=== PATIENT | male | born 2000 | race Caucasian/White ===

== ENCOUNTER 2022-03-03 00:03 | Emergency (ER) | payer BC, SELFPAY ==
[2022-03-03 00:09] VITALS: BP 140/87; PULSE 80; RESP 16; TEMP 36.9; O2SAT 97; BMI 18.1
--- NOTE | 2022-03-03 00:17 | ED.ABDPAIN ---
HPI - Abdominal Pain General Time Seen by Provider: 00:20 Date Seen: 03/03/22 Chief Complaint: Abdominal Pain Stated Complaint: right side abdominal pain Time Seen by Provider: 03/03/22 00:17 Source: patient, family, RN notes reviewed and old records reviewed Mode of arrival: ambulatory Limitations: no limitations History of Present Illness HPI narrative: Hua is a very pleasant 22-year-old male previously healthy who comes to the emergency his mother for evaluation regarding pain. His mother states that he is not complainer has a very pain tolerance and thus with this as he has discomfort it is real. Given the gradual onset of discomfort right side of his belly button yesterday and has gradually migrated to the right. It has not descended into right lower quadrant. It is not associated with fever or chills. He states he is very hungry and has been able to eat today. He denies constipation or diarrhea or any blood in his stool. He did not have any problems with his discomfort as he drove here such as going over bumps. Yesterday states the pain was around 2 to 3/10 and today it is 6 or 7 out 10. 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 In fact he states yesterday was rather calm day. Patient denies any history of fever chills or recent COVID symptoms. Related Data Home Medications Medication Instructions Recorded Confirmed No Known Home Medications 03/03/22 03/03/22 Allergies Allergy/AdvReac Type Severity Reaction Status Date / Time amoxicillin Allergy Intermediate Hives Verified 03/03/22 00:08 Review of Systems Status of ROS Reports: 10 or more systems reviewed and unremarkable except as noted in History and below Const Denies: fever, chills, fatigue or night sweats Eyes Denies: change in vision ENMT Denies: throat pain or difficulty swallowing Cardio Denies: chest pain or shortness of breath with exertion Resp Denies: shortness of breath or cough GI Reports: abdominal pain; Denies: nausea, vomiting, diarrhea, constipation, difficulty swallowing or blood in stool Denies: painful urination Musculo Denies: back pain Neuro Denies: headache Endo Denies: fatigue PFSH PFSH Social History Smoking Status: Never smoker Do you use any of these nicotine containing products: None Second hand tobacco smoke exposure: No How often do you have a drink containing alcohol: never How often do you have six or more drinks on one occasion: Never AUDIT-C Alcohol total score: 0 Non-prescribed substance use: marijuana (any form) service: No Exam Const: Vital Signs, click to edit/add: Vital Signs - 24 hr 03/03/22 00:09 03/03/22 01:00 Temperature 98.4 F Pulse Rate [Pulse Oximeter] 80 67 Respiratory Rate 16 14 Blood Pressure [Ri ght Upper Arm] 140/87 H 128/79 Pulse Oximetry 97 98 Oxygen Delivery Me thod Room Air Room Air Documenting provider has reviewed patient's vital signs: yes Common normals: no apparent distress, average body habitus, oriented x3, no limitations and healthy appearing General appearance: cooperative and comfortable HENMT: Common normals: normocephalic and external ears normal Head and scalp: normocephalic Face and sinus: normal facial exam External ear: external ears normal Mouth: oral and palatal mucosa normal Throat: posterior oropharynx normal Eye: Common normals: PERRL General eye: normal appearance of both eyes Pupil: PERRL Neck & C-Spine: Common normals: full ROM Chest: Common normals: inspection of chest normal Resp: Common normals: normal respiratory effort and clear to auscultation bilaterally Effort & inspection: able to speak in complete sentences and symmetric chest movement Auscultation: clear to auscultation bilaterally Cardio: Common normals: regular rate and regular rhythm Rate: regular rate Rhythm: regular rhythm GI: Common normals: soft to palpation and no masses Inspection: no abdominal wall ecchymosis Auscultation: normoactive bowel sounds Palpation: soft and tender Details: RUQ; no guarding Other: mild increased pain with deep inspiration RUQ : Common normals: no CVA tenderness Bladder/kidney exam: no CVA tenderness Back & Pelvis: Common normals: no CVA tenderness Extremity: Common normals: normal to inspection Neuro: Common normals: oriented x3 Skin: Common normals: no rashes or lesions noted General skin exam: no rashes or lesions noted Course Course Hospital Course: Patient presents tonight with his mother. Great concerns regarding potential appendicitis. I did explain that Hua does not have normal exam findings nor symptoms of appendicitis such as a healthy appetite and no peritoneal signs. In addition as pain appears to be in the right upper quadrant/lateral abdomen and not in the right lower quadrant. Straight leg raise and internal external rotation at the hip do not cause discomfort. I explained that we would be getting laboratory values and that I would be avoiding CT in a person of his age if there were normal values. If he has persisting discomfort after pain medication (I will be using Toradol) we will then consider ultrasound of the right upper quadrant. Reevaluation(s) Reevaluation #1: Patient noted to be feeling somewhat improved with Toradol. Pain has decreased to a 4-5 with walking but at rest is much improved. Laboratory values are discussed with patient and his mother and they are all very reassuring. Given ongoing pain will order ultrasound. Time: 01:40 Reevaluation #2: Patient still unable to urinate. He does have a slightly elevated BUN. He continues to be nontoxic in appearance with normal pulse blood pressure and he is afebrile. We brought him to [facility] to see if we can induce a urine sample. Vital Signs Vital signs: Initial Vital Signs Temperature 98.4 F 03/03/22 00:09 Temperature Source Temporal Artery Scan 03/03/22 00:09 Pulse Rate 80 03/03/22 00:09 Respiratory Rate 16 03/03/22 00:09 Blood Pressure 140/87 H 03/03/22 00:09 Blood Pressure Mean 104 03/03/22 00:09 Blood Pressure Position Sitting 03/03/22 00:09 Pulse Oximetry 97 03/03/22 00:09 Oxygen Delivery Method 03/03/22 00:09 Vital Signs Temperature 98.4 F 03/03/22 00:09 Pulse Rate 80 03/03/22 00:09 Respiratory Rate 16 03/03/22 00:09 Blood Pressure 140/87 H 03/03/22 00:09 Pulse Oximetry 97 03/03/22 00:09 Oxygen Delivery Method 03/03/22 00:09 Temperature 98.4 F 03/03/22 00:09 Pulse Rate 67 03/03/22 01:00 Respiratory Rate 14 03/03/22 01:00 Blood Pressure 128/79 03/03/22 01:00 Pulse Oximetry 98 03/03/22 01:00 Oxygen Delivery Method 03/03/22 01:00 MDM - Abdominal Pain MDM Narrative Medical decision making narrative: 1. Abdominal pain-at this time no evidence of cholecystitis, cholelithiasis, acute abdomen. White count and CRP are reassuring as are LFTs. Abdominal ultrasound showed no evidence of stones. Or other acute findings. Hua was not able to give a urine sample but they are electing to go home. I would recommend using ibuprofen or Tylenol as needed for any ongoing discomfort. Certainly we have to consider an abdominal process early in its course but I think this is more likely to be some sort of muscular process given patient's current employment. Our plan going forward is to have Hua follow up with his primary MD if his symptoms are stable but persistent. If he has fever, worsening pain, migration of the pain to the right lower quadrant or onset of new symptoms he will return to the emergency room for evaluation. I do state that at this time I would not pursue a CT given patient's exam findings, history and reassuring laboratory values as I feel that the radiation is of greater risk than the benefit of the CT. That may change in the future if symptoms or labs also change. Mom agrees she feels comfortable with our plan. 2. Disposition-home. Return as needed. Medical Records Attestation: I reviewed the patient's medical records. Lab Data Attestation: I reviewed the patient's lab results. Labs: Lab Results 03/03/22 03/03/22 Range/Units 00:35 00:35 WBC 9.61 (4.50-11.00) K/uL RBC 4.83 (4.30-5.90) m/uL Hgb 14.2 (13.5-17.5) gm/dL Hct 41.3 (37.0-53.0) % MCV 86 (80-100) fL MCH 29 (26-34) pg MCHC 34 (32-36) gm/dL RDW Coeff of Jennifer 12.7 (11.5-15.5) % Plt Count 251 (140-440) K/uL Neut % (Auto) 68.1 (42.0-72.0) % Lymph % (Auto) 23.5 (20-44) % [place] % (Auto) 7.2 (0.0-11.0) % Eos % (Auto) 0.1 (0.0-7.0) % Baso % (Auto) 0.4 (0.0-3.0) % Neut # (Auto) 6.54 (1.7-7.0) K/uL Lymph # (Auto) 2.26 (0.90-2.90) K/uL [place] # (Auto) 0.70 (0.00-0.90) K/UL Eos # (Auto) 0.01 (0.00-0.50) K/uL Baso # (Auto) 0.04 (0.00-0.30) K/uL Abs Immat Gran (auto) 0.07 (0.00-0.30) K/uL Sodium 137 (135-149) mmol/L Potassium 4.1 (3.6-5.1) mmol/L Chloride 103 (96-114) mmol/L Carbon Dioxide 21 (20-32) mmol/L BUN 29 H (5-24) mg/dL Creatinine 0.8 (0.5-1.5) mg/dL Estimated Creat Clear 137.02 Estimated GFR 130 ml/min Glucose 102 (60-115) mg/dL Calcium 9.9 (8.4-10.6) mg/dL Total Bilirubin 0.3 (0.1-1.5) mg/dL AST 38 H (12-35) U/L ALT 27 (4-50) U/L Alkaline Phosphatase 94 (40-150) U/L C-Reactive Protein 0.8 (0.5-1.0) mg/dL Total Protein 8.1 (6.0-8.3) g/dL Albumin 4.9 (3.3-5.0) g/dL Amylase 70 (18-89) U/L Lipase 39 (23-300) U/L Imaging Data US - abdomen: Attestation: I have reviewed the pertinent imaging results. Radiologist's impression: No acute findings Discharge Plan Discharge Clinical Impression: Abdominal pain Patient Disposition: Home w/ Parent or Adult Condition: Improved Additional Instructions: Ibuprofen or Tylenol as needed for stomach discomfort. Follow-up with your primary MD for ongoing symptoms. Return to the emergency room for fever, worsening symptoms, vomiting or onset of new symptoms. Push fluids. Prescriptions: No Action No Known Home Medications Follow Up/Referrals: Provider,Not a Local [Primary Care Provider] - Stand Alone Forms: [employer] Info Instructions
[2022-03-03] MEDS: KETOROLAC 15 MG/ML inj IVP (00:46)
[2022-03-03 01:00] VITALS: BP 128/79; PULSE 67; RESP 14; O2SAT 98
[2022-03-03 01:02] LABS: Basophils Absolute Auto 0.04 K/uL (0.00-0.30); Basophils Percent Auto 0.4 % (0.0-3.0); Eosinophils Absolute Auto 0.01 K/uL (0.00-0.50); Eosinophils Percent Auto 0.1 % (0.0-7.0); Hematocrit 41.3 % (37.0-53.0); Hemoglobin* 14.2 gm/dL (13.5-17.5); Immature Granulocytes Abs Auto 0.07 K/uL (0.00-0.30); Lymphocytes Absolute Auto 2.26 K/uL (0.90-2.90); Lymphocytes Percent Auto 23.5 % (20-44); Mean Corpuscular HGB Conc 34 gm/dL (32-36); Mean Corpuscular Hemoglobin 29 pg (26-34); Mean Corpuscular Volume 86 fL (80-100); Monocytes Percent Auto 7.2 % (0.0-11.0); Neutrophils Absolute Auto 6.54 K/uL (1.7-7.0); Neutrophils Percent Auto 68.1 % (42.0-72.0); Platelet Count* 251 K/uL (140-440); RDW Coefficient of Variation % 12.7 % (11.5-15.5); Red Blood Count 4.83 m/uL (4.30-5.90); White Blood Count* 9.61 K/uL (4.50-11.00)
[2022-03-03 01:05] LABS: Slide Review Reflex No
[2022-03-03 01:06] LABS: Albumin* 4.9 g/dL (3.3-5.0); Chloride* 103 mmol/L (96-114)
[2022-03-03 01:07] LABS: Potassium* 4.1 mmol/L (3.6-5.1); Sodium* 137 mmol/L (135-149)
[2022-03-03 01:09] LABS: Amylase* 70 U/L (18-89); Creatinine* 0.8 mg/dL (0.5-1.5); Est. Creatinine Clearance* 137.02; Estimated Glomerular Filt Rate 130 ml/min
[2022-03-03 01:10] LABS: Alanine Aminotransferase* 27 U/L (4-50); Alkaline Phosphatase* 94 U/L (40-150); Aspartate Amino Transferase* 38 U/L (12-35); Bilirubin Total* 0.3 mg/dL (0.1-1.5); Blood Urea Nitrogen* 29 mg/dL (5-24); Calcium* 9.9 mg/dL (8.4-10.6); Carbon Dioxide* 21 mmol/L (20-32); Glucose* 102 mg/dL (60-115); Lipase* 39 U/L (23-300); Total Protein* 8.1 g/dL (6.0-8.3)
[2022-03-03 01:12] LABS: C Reactive Protein* 0.8 mg/dL (0.5-1.0)
--- NOTE | 2022-03-03 01:45 | CRLHL7_ITS ---
For Patients: As a result of the Century Cures Act, medical imaging exams and procedure reports are released immediately into your electronic medical record. You may view this report before your referring provider. If you have questions, please contact your health care provider. INDICATION: Right upper quadrant pain. COMPARISON: None available. TECHNIQUE: Ultrasound examination of the right upper quadrant was performed. FINDINGS: There is normal appearance of the gallbladder, with no sign of cholelithiasis or acute cholecystitis. There is no sign of gallbladder wall thickening or pericholecystic fluid. A sonographic Lopez sign is not present, with no pain over the gallbladder during ultrasound examination. The common bile duct is normal in caliber at 4 mm. The pancreatic head and body were examined, and these are normal in appearance. The abdominal aorta and visualized portions of the inferior vena cava are normal in appearance. The liver shows no sign of mass or contour abnormality, and there is no sign of ascites. The right kidney is unremarkable. IMPRESSION: Normal right upper quadrant ultrasound. Dictated by Tenzin Chowdary MD @ 03/03/2022 2:56:39 AM (Electronically Signed)
[2022-03-03 02:30] VITALS: BP 121/70; PULSE 69; RESP 16; O2SAT 98
== END 2022-03-03 03:31 | disposition home or self-care (01) ==
PROVIDERS: Emergency Provider Family Medicine
DX: R10.9 Unspecified abdominal pain (principal)
CPT/HCPCS: 36415; 76705; 80053; 81003; 82150; 83690; 85025; 86140; 96374; 99283; 99284; J1885

== ENCOUNTER 2022-03-04 19:48 | Emergency (ER) | payer BC, SELFPAY ==
[2022-03-04 19:57] VITALS: BP 145/79; PULSE 78; RESP 16; TEMP 36.6; O2SAT 99; BMI 18.2
--- NOTE | 2022-03-04 20:13 | CRLHL7_ITS ---
For Patients: As a result of the Century Cures Act, medical imaging exams and procedure reports are released immediately into your electronic medical record. You may view this report before your referring provider. If you have questions, please contact your health care provider. INDICATION: Right-sided abdominal pain since Monday. TECHNIQUE: CT abdomen and pelvis following the intravenous administration of 71 cc of Isovue 370. COMPARISON: Ultrasound 03/03/2022. FINDINGS: Lower chest: Unremarkable. Liver: Focal fatty sparing along the falciform ligament. No focal liver lesion. Gallbladder and bile ducts: Gallbladder is decompressed. No biliary ductal dilation. Pancreas: Unremarkable. No mass or inflammation. Spleen: Normal in size. No masses. Adrenal glands: Normal in size. No nodules. Kidneys: Normal in size. No suspicious masses, stones, or hydronephrosis. GI tract: Stomach is distended with ingested material. Appendix is not definitively identified though no secondary findings of appendicitis. No small bowel dilation. No colonic wall thickening or pericolonic fat stranding. No free fluid or free air. No lymphadenopathy. No pneumatosis or portal venous gas bread Vasculature: Unremarkable. Lymph nodes: No lymphadenopathy. Abdominal wall/Omentum/Peritoneum: Unremarkable. No sign of mass or infiltration. No free air or significant free fluid. Pelvis: Unremarkable. No pelvic masses. Bones: Unremarkable for age. IMPRESSION: No evidence of acute intra-abdominal or pelvic abnormality. Appendix is not definitely visualized though no secondary findings of appendicitis. No right-sided stones or hydronephrosis. Please note that all CT scans at this facility use dose modulation, iterative reconstruction, and/or weight-based dosing when appropriate to reduce radiation dose to as low as reasonably achievable. Dictated by Nacho Fortune MD @ 03/04/2022 9:40:29 PM (Electronically Signed)
--- NOTE | 2022-03-04 20:24 | ED_ITS ---
HPI - General Adult General Chief complaint: Abdominal Pain Stated complaint: Abdominal Pain Time Seen by Provider: 03/04/22 20:15 History of Present Illness HPI narrative: Patient is a 22-year-old gentleman who was seen several days ago here in the emergency room for right upper abdominal pain. Normal ultrasound. The pain seems to be work pending. He has had no he states is worse when he walks or he has no history of any abdominal without Related Data Home Medications Medication Instructions Recorded Confirmed No Known Home Medications 03/03/22 03/03/22 Allergies Allergy/AdvReac Type Severity Reaction Status Date / Time amoxicillin Allergy Unknown Hives Verified 03/04/22 20:44 Review of Systems Status of ROS: Reports: 10 or more systems reviewed and unremarkable except as noted in History and below [facility] Medical History (Updated 03/04/22 @ 21:47 by Amado Chanel MD) No significant past medical history Surgical History (Updated 03/04/22 @ 20:02 by Irving Quintana RN) No significant past surgical history Social History Smoking Status: Never smoker Do you use any of these nicotine containing products: None Second hand tobacco smoke exposure: No How often do you have a drink containing alcohol: never How often do you have six or more drinks on one occasion: Never AUDIT-C Alcohol total score: 0 Non-prescribed substance use: marijuana (any form) service: No Exam Narrative: Exam Narrative: EXAM GENERAL: Patient appears comfortable and well. EYES: No scleral icterus. LYMPH: No supraclavicular or cervical lymphadenopathy. SKIN: Visible skin seen during exam normal or with benign process only. EXT: No dependent lower extremity pedal edema. HEART: Regular rate and rhythm with no murmurs, rubs, or gallops. LUNGS: Clear to auscultation bilaterally with no crackles or wheezes. ABD: Soft, non tender, non distended. PSYCH: Good eye contact, speech is not pressured. Const: Vital Signs, click to edit/add: Vital Signs - 24 hr 03/04/22 19:57 03/04/22 21:43 Temperature 97.8 F 97.8 F Pulse Rate [Right Pulse Oximeter] 78 74 Respiratory Rate 16 16 Blood Pressure [Ri ght Upper Arm] 145/79 H 121/74 Pulse Oximetry 99 99 Oxygen Delivery Me thod Room Air Room Air Course Course Hospital Course: CT of the abdomen pelvis CBC. Reevaluation(s) Reevaluation #1: CT abdomen pelvis CBC amylase UA is metabolic panel all normal. Patient Time: 21:45 Vital Signs Vital signs: Initial Vital Signs Temperature 97.8 F 03/04/22 19:57 Temperature Source Temporal Artery Scan 03/04/22 19:57 Pulse Rate 78 03/04/22 19:57 Respiratory Rate 16 03/04/22 19:57 Blood Pressure 145/79 H 03/04/22 19:57 Blood Pressure Mean 101 03/04/22 19:57 Blood Pressure Position Sitting 03/04/22 19:57 Pulse Oximetry 99 03/04/22 19:57 Oxygen Delivery Method 03/04/22 19:57 Vital Signs Temperature 97.8 F 03/04/22 19:57 Pulse Rate 78 03/04/22 19:57 Respiratory Rate 16 03/04/22 19:57 Blood Pressure 145/79 H 03/04/22 19:57 Pulse Oximetry 99 03/04/22 19:57 Oxygen Delivery Method 03/04/22 19:57 Temperature 97.8 F 03/04/22 21:43 Pulse Rate 74 03/04/22 21:43 Respiratory Rate 16 03/04/22 21:43 Blood Pressure 121/74 03/04/22 21:43 Pulse Oximetry 99 03/04/22 21:43 Oxygen Delivery Method 03/04/22 21:43 Medical Decision Making Lab Data Labs: Lab Results 03/04/22 03/04/22 03/04/22 Range/Units 20:20 20:20 20:20 WBC 5.04 (4.50-11.00) K/uL RBC 4.45 (4.30-5.90) m/uL Hgb 13.3 L (13.5-17.5) gm/dL Hct 38.5 (37.0-53.0) % MCV 87 (80-100) fL MCH 30 (26-34) pg MCHC 35 (32-36) gm/dL RDW Coeff of Jennifer 13.0 (11.5-15.5) % Plt Count 241 (140-440) K/uL Neut % (Auto) 51.6 (42.0-72.0) % Lymph % (Auto) 37.1 (20-44) % [place] % (Auto) 8.1 (0.0-11.0) % Eos % (Auto) 2.6 (0.0-7.0) % Baso % (Auto) 0.6 (0.0-3.0) % Neut # (Auto) 2.60 (1.7-7.0) K/uL Lymph # (Auto) 1.87 (0.90-2.90) K/uL [place] # (Auto) 0.40 (0.00-0.90) K/UL Eos # (Auto) 0.13 (0.00-0.50) K/uL Baso # (Auto) 0.03 (0.00-0.30) K/uL Abs Immat Gran (auto) 0.00 (0.00-0.30) K/uL Sodium 139 (135-149) mmol/L Potassium 3.9 (3.6-5.1) mmol/L Chloride 108 (96-114) mmol/L Carbon Dioxide 24 (20-32) mmol/L BUN 17 (5-24) mg/dL Creatinine 0.8 (0.5-1.5) mg/dL Estimated Creat Clear 137.66 Estimated GFR 130 ml/min Glucose 110 (60-115) mg/dL Calcium 8.8 (8.4-10.6) mg/dL Total Bilirubin 0.2 (0.1-1.5) mg/dL AST 29 (12-35) U/L ALT 24 (4-50) U/L Alkaline Phosphatase 81 (40-150) U/L Total Protein 7.0 (6.0-8.3) g/dL Albumin 4.2 (3.3-5.0) g/dL Amylase 70 (18-89) U/L Urine Color Yellow (Yellow) Urine Appearance Clear (Clear) Urine pH 6.0 (5.0-8.5) Ur Specific [place] >= 1.030 (1.000-1.030) Urine Protein Negative (Negative) Urine Glucose (UA) Negative (Negative) Urine Ketones Negative (Negative) Urine Blood Negative (Negative) Urine Nitrite Negative (Negative) Urine Bilirubin Negative (Negative) Urine Urobilinogen 0.2 (0.2-1.0) Ur Leukocyte Esterase Negative (Negative) Discharge Plan Discharge Clinical Impression: Abdominal muscle strain Patient Disposition: Home, Self-Care Condition: Stable Instructions: Muscle Strain (ED) Additional Instructions: Ibuprofen 600 mg three times per day as needed Ice Follow up with your doctor as needed Activity Level: No Restrictions and Activity as Tolerated Discharge Diet: Regular Prescriptions: No Action No Known Home Medications Follow Up/Referrals: Provider,Not a Local [Primary Care Provider] - Stand Alone Forms: [employer] Info Instructions
[2022-03-04 20:33] LABS: Basophils Absolute Auto 0.03 K/uL (0.00-0.30); Basophils Percent Auto 0.6 % (0.0-3.0); Eosinophils Absolute Auto 0.13 K/uL (0.00-0.50); Eosinophils Percent Auto 2.6 % (0.0-7.0); Hematocrit 38.5 % (37.0-53.0); Hemoglobin* 13.3 gm/dL (13.5-17.5); Lymphocytes Absolute Auto 1.87 K/uL (0.90-2.90); Lymphocytes Percent Auto 37.1 % (20-44); Mean Corpuscular HGB Conc 35 gm/dL (32-36); Mean Corpuscular Hemoglobin 30 pg (26-34); Mean Corpuscular Volume 87 fL (80-100); Monocytes Percent Auto 8.1 % (0.0-11.0); Neutrophils Percent Auto 51.6 % (42.0-72.0); Platelet Count* 241 K/uL (140-440); Red Blood Count 4.45 m/uL (4.30-5.90); White Blood Count* 5.04 K/uL (4.50-11.00)
[2022-03-04 20:59] LABS: Appearance Urine Clear (Clear); Bilirubin Urine Negative (Negative); Blood Urine Negative (Negative); Color Urine Yellow (Yellow); Glucose Urine Negative (Negative); Ketones Urine Negative (Negative); Leukocyte Esterase Urine Negative (Negative); Nitrite Urine Negative (Negative); Protein Urine Negative (Negative); Specific Gravity Urine >= 1.030 (1.000-1.030); Urobilinogen Urine 0.2 (0.2-1.0)
[2022-03-04 21:04] LABS: Albumin* 4.2 g/dL (3.3-5.0); Amylase* 70 U/L (18-89); Chloride* 108 mmol/L (96-114); Creatinine* 0.8 mg/dL (0.5-1.5); Est. Creatinine Clearance* 137.66; Estimated Glomerular Filt Rate 130 ml/min; Potassium* 3.9 mmol/L (3.6-5.1); Sodium* 139 mmol/L (135-149)
[2022-03-04 21:05] LABS: Alanine Aminotransferase* 24 U/L (4-50); Alkaline Phosphatase* 81 U/L (40-150); Aspartate Amino Transferase* 29 U/L (12-35); Bilirubin Total* 0.2 mg/dL (0.1-1.5); Blood Urea Nitrogen* 17 mg/dL (5-24); Calcium* 8.8 mg/dL (8.4-10.6); Carbon Dioxide* 24 mmol/L (20-32); Glucose* 110 mg/dL (60-115)
[2022-03-04 21:18] LABS: Slide Review Reflex No
[2022-03-04 21:43] VITALS: BP 121/74; PULSE 74; RESP 16; TEMP 36.6; O2SAT 99
[2022-03-04 21:54] VITALS: BP 121/74; PULSE 74; RESP 16; TEMP 36.6
== END 2022-03-04 21:54 | disposition home or self-care (01) ==
PROVIDERS: Emergency Provider Internal Medicine
DX: S39.011A Strain of muscle, fascia and tendon of abdomen, initial encounter (principal)
CPT/HCPCS: 36415; 74177; 80053; 81003; 82150; 85025; 99283; 99284; Q9967

== ENCOUNTER 2025-01-01 17:17 | Emergency (ER) | payer OTHER, SELFPAY ==
--- OUTSIDE RECORDS SUMMARY | 2025-01-01 17:18 | XMS_ITS | Clinical Summary ---
Author Organization [facility] Address [address] [place] [id number] Care Team Providers Care Contact Center Rep Name Role Phone Pcp, No Primary Care Provider Unavailabl e Allergies Active Allergy Reactions Criticality Noted Date Comments Amoxicillin Hives 11/12/2007 Medications sennosides-doc usate (8.6-50 mg) tabletIndicati ons:Left testicular pain Take 1 Tablet by mouth 2 times daily if needed for Constipation (to avoid constipation post-operatively and if taking narcotic pain medications). 30 Tablet 12/17/2024 9:08 AM T 12/17/19 25 Active acetaminophen 325 mg tabletIndicati ons:Left testicular pain Take 2 Tablets (650 mg) by mouth every 6 hours if needed for Pain. Max acetaminophen dose: 4000mg in 24 hrs. 100 Tablet 12/17/2024 9:08 AM T 12/17/19 25 Active ibuprofen 600 mg tabletIndicati ons:Left testicular pain Take 1 Tablet (600 mg) by mouth every 8 hours if needed for Pain. Maximum of 3200 mg in 24 hours. 27 Tablet 12/17/2024 9:08 AM CDT 12/17/19 25 Active CHEWABLE MULTI VITAMIN TAB take one daily 0 10/29/19 08 025 Discontin ued(*Josefina ent states no longer taking) oxyCODONE 5 mg immediate release tabletIndicati ons:Left testicular pain Take 1 Tablet (5 mg) by mouth every 6 hours if needed for Pain. 12 Tablet 12/17/2024 9:08 AM CDT 12/17/19 25 025 Discontin ued(*Josefina ent states no longer taking) Active Problems Problem Noted Date Diagnosed Date Left testicular pain 07/31/2024 Resolved Problems Problem Noted Date Diagnosed Date Resolved Date URI 09/13/2005 12/10/2024 Encounters Date Type Department Care Team Description 01/01/2025 Nurse Triage [facility] [address] [place] [address] Pcp, No Post-op 12/30/2024 Nurse Triage [facility] Nurse Triage Pcp, No Gi Problem 12/27/2024 2:00 PM CDT [place] [facility] [address] [facility] [place] [address] Davie Bowie MD Letter (For work) 12/27/2024 Travel 12/25/2024 Telephone [facility] [address] [place] [address] Beth Tony NP Form (drs note) 12/16/2024 12:40 PM CDT - 12/16/2024 1:55 PM CDT Surgery [facility] [address] [place] [address] Srinath Hay MD ORCHIOPEXY, BILATERAL 12/16/2024 12:24 PM CDT Anesthesia Event [facility] [address] [place] [address] Valeriy Hernandez, LAURENCE Clayton, Mirna Feliz, GRAPHIC DESIGN TEACHER 12/16/2024 11:02 AM CDT - 12/16/2024 11:59 PM CDT Hospital Encounter [facility] [address] [place] [address] Srinath Hay MD Kidney stone (Primary Dx); Left testicular pain Discharge Disposition: Home Self Care 12/16/2024 Travel 12/10/2024 1:00 PM CDT Office Visit [facility] [address] [place] [address] Beth Tony NP Pre-Op Exam (DOS 12/16/2024; bilateral orchiopexy) 12/09/2024 12:40 PM CDT Office Visit [facility] [address] [place] [phone] Srinath Hay MD Consult (Left testicular pain) 12/09/2024 Travel 12/04/2024 1:00 PM CDT [place] [facility] [address] [facility] [place] [facility] [address] Konstantin Levy MD Occ Med (Work Comp) 12/04/2024 Travel 10/02/2024 7:21 PM 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 CIRCUIT 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 PANELS 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 - 10/02/2024 8:59 PM PRINTED CIRCUIT [employer]ARD PANELS TRIMMER Emergency [facility] [address] [place] [address] Tiki Jacobsen PA-C Left testicular pain (Primary Dx) Discharge Disposition: Home Self Care from Last 3 Months Immunizations Immunization Administration Dates Next Due DTaP 10/29/2007, 4,01/29/2003,09/09,2002,2002 DTaP-HIB (TriHIBIT) 08/19/2003 HIB-HepB (Comvax) 08/19/2003,2002,05/01/20 02 Hepatitis A (Peds) 03/19/2014 Hepatitis B (Peds) 01/29/2003 INFLUENZA, IIV3 PF (AGE >= 6 MO) 08/13/2012 Inactivated Polio Vaccine 10/29/2007,08/2002,2002,05/01 Influenza, IIV3 (Age >=3 years) 07/16/2003 Influenza, IIV4 06/06/2016 MENINGOCOCCAL VACCINE 2 VIAL 2MO-55YO (MENVEO) 03/19/2014 MMR 10/29/2007,08/19/2003 Pneumococcal conj 7-Valent (Prevnar 7) 1 2002,2002,2002,05/01 Tdap 03/19/2014 Varicella Vaccine 03/19/2014,08/19/2003 Family History Medical History Relation Name Comments Good Health Father Good Health Mother Relation Name Status Comments Father Mother Social History Tobacco Use Types Packs/Day Years Used Date Smoking Tobacco: Never Passive Smoke Exposure: Never Tobacco Cessation:Counseling Given: Not Answered Comments:no smokers in house Alcohol Use Standard Drinks/Week Comments Yes 0 (1 standard drink = 0.6 oz pur e alcohol) socially PHQ-2 Answer Date Recorded PHQ-2 TOTAL SCORE 0 12/04/2024 Social Connections Answer Date Recorded Do you often feel lonely or isolated from those around you? 0 12/27/2024 Financial Resource Strain Answer Date R ecorded Difficulty of Paying Living Expenses 3 12/27/2024 Difficulty of Paying Living Expenses Not on file 12/27/2024 Food Insecurity Answer Date Recorded Do you worry your food will run out before you are able to buy more? 1 12/27/2024 Transportation Needs Answer Date Record ed Does lack of transportation keep you from medica l appointments? 1 12/27/2024 Does lack of transportation keep you from work, meetings or getting things that you need? 1 12/27/2024 Housing Stability Answer Date Recorded What is your housing situation today? 1 12/27/2024 Utilities Answer Date Recorded Do you have trouble paying f or utilities (for example, heat, electricity, water, phone)? 1 12/27/2024 Sex and Gender Information Value Date Recorded Sex Assigned at Not on file Legal Sex Male 7:08 AM PRINTED CIRCUIT [employer]ARD PANELS TRIMMER Gender Identity Not on file Sexual Orientation Not on file Obstetrics History Last Filed Vital Signs Vital Sign Reading Time Taken Comments Blood Pressure 110/80 12/27/2024 2:03 PM CDT Pulse 84 12/27/2024 2:03 PM CDT Temperature 36.8 C (98.2 F) 12/16/2024 2:25 PM CDT Respiratory Rate 16 12/16/2024 2:25 PM CDT Oxygen Saturation 99% 12/16/2024 2:45 PM CDT Inhaled Oxygen Concentration - - Weight 73.5 kg (162 lb) 12/27/2024 2:03 PM CDT Height 189 cm (6' 2.41) 12/27/2024 2:03 PM CDT Body Mass Index 20.57 12/27/2024 2:03 PM CDT Plan of Treatment Upcoming Encounters Date Type Department Care Team (Late st Contact Info) Description 01/06/2025 3:00 PM CDT Office Visit [facility] [address] [facility] [place] [phone] Srinath Hay MD [address] [place] [address] Health Maintenance Due Date Last Done Comments HIV for age 15-65 2017 HPV series for age 9-26 (1 - Male 3-dose series) 2017 Hepatitis C screening for age 18-79 02/21/2020 Tetanus booster 03/19/2024 03/19/2014 COVID-19 vaccine series ( season) 2024 Influenza Vaccine (Season Ended) 2025 06/06/2016, 08/13/2012, 07/16/2003 Depression screening for age 12+ 12/09/2025 12/09/2024, 12/04/2024 BMI (ht and wt on same day) for age 18+ 12/27/2025 12/27/2024, 12/10/2024, 12/04/2024 Pneumococcal series for age 6-49 Aged Out 07/16/2003, 2002, 2002, Additional history exists No longer eligible based on patient's age to complete this topic Hepatitis B series for 19+ Completed 08/19, 01/29/2003, 2002, Additional history exists Tdap Completed 03/19/2014 Procedures Procedure Name Priority Date/Time Associated Diagnosis Comments CBC WITH AUTO DIFFERENTIAL Routine 12/27/2024 2:38 PM CDT Scrotum swelling C-REACTIVE PROTEIN Routine 12/27/2024 2: 38 PM CDT Scrotum swelling SUPRAGLOTTIC-LMA Routine 12/16/2024 12:3 8 PM CDT ORCHIOPEXY Elective 12/16/2024 12:24 PM CDT Testicular pain, left Testicular torsion CT ABDOMEN PELVIS W STAT 10/02/2024 8 :47 PM PRINTED [employer] PANELS TRIMMER US SCROTUM WITH DUPLEX STAT 10/02/2024 8:35 PM PRINTED [employer]ARD PANELS TRIMMER UA W/ SEDIMENT EXAM REFLEXED PER CRITERIA STAT 10/02/2024 8:35 PM PRINTED [employer]ARD PANELS TRIMMER CBC WITH AUTO DIFFERENTIAL STAT 10/02/2024 7:48 PM PRINTED [employer]ARD PANELS TRIMMER BASIC METABOLIC PANEL STAT 10/02/2024 7:48 PM PRINTED [employer]ARD PANELS TRIMMER CBC WITH AUTO DIFFERENTIAL STAT 10/02/2024 7:48 PM PRINTED [employer]ARD PANELS TRIMMER from Last 3 Months Results * C-REACTIVE PROTEIN (12/27/2024 2:38 PM CDT) [facility] C-REACTIVE PROTEIN <3.0 <8.0 mg/L [facility] Blood BLOOD SPECIMEN / Unknown 12/27/2024 2:38 PM CDT 12/27/2024 2:38 PM CDT Davie Bowie MD CHEMISTRY Final Result [facility] [address] [place] [address], [facility] [address] [place] [address] * CBC AND DIFFERENTIAL (12/27/2024 2:38 PM CDT) [facility] WHITE BLOOD CELL COUNT 6.7 3.8 - 10.8 Thousand/u L [facility] RED BLOOD CELL COUNT 5.17 4.20 - 5.80 Million/uL [facility] HEMOGLOBIN 15.2 13.2 - 17.1 g/dL [facility] HEMATOCRIT 45.3 38.5 - 50.0 % [facility] MCV 87.6 80.0 - 100.0 fL [facility] MCH 29.4 27.0 - 33.0 pg [facility] MCHC 33.6 32.0 - 36.0 g/dL [facility] Comment: For adults, a slight decrease in the calculated MCHC value (in the range of 30 to 32 g/dL) is most likely not clinically significant; however, it should be interpreted with caution in correlation with other red cell parameters and the patient's clinical condition. RDW 12.7 11.0 - 15.0 % [facility] PLATELET COUNT 309 140 - 400 Thousand/u L [facility] MPV 9.6 7.5 - 12.5 fL [facility] ABSOLUTE NEUTROPHILS 4,563 1,500 - 7,800 cells/uL [facility] ABSOLUTE LYMPHOCYTES 1,581 850 - 3,900 cells/uL [facility] ABSOLUTE MONOCYTES 469 200 - 950 cells/uL [facility] ABSOLUTE EOSINOPHILS 60 15 - 500 cells/uL [facility] ABSOLUTE BASOPHILS 27 0 - 200 cells/uL [facility] NEUTROPHILS 68.1 % [facility] LYMPHOCYTES 23.6 % [facility] MONOCYTES 7.0 % [facility] EOSINOPHILS 0.9 % [facility] BASOPHILS 0.4 % [facility] Blood BLOOD SPECIMEN / Unknown 12/27/2024 2:38 PM CDT 12/27/2024 2:38 PM CDT us Davie Bowie MD HEMATOLOGY Final Result [facility] [address] [place] [address], [facility] [address] [place] [address] * Supraglottic (12/16/2024 12:38 PM CDT) Narrative Sherine Gómez CRNA Student - 12/16/2024 12:38 PM CDT Sherine Gómez CRNA Student 12/16/2024 12:38 PM Procedure: Supraglottic Patient location during procedure: OR Supraglottic Airway Properties Mask Ventilation: easy and not attempted Type: i-gel Tube Size: 4 Insertion Attempts: 1 Placement Verification: auscultation and CO2 detection Assessment Assessment: atraumatic and dentition unchanged Airway Intervention: secured Valeriy Martinez Hernandez GRAPHIC DESIGN TEACHER ANESTHESIA PX NOTE O RDERABLES Final Result * CT ABDOMEN PELVIS W (10/02/2024 8:47 PM PRINTED CIRCUIT BOARD PANELS TRIMMER) Anatomical Region Laterality Modality Abdomen, Pelvis, AORTA, LIVER, SPLEEN Computed Tomography 10/02/2024 8:47 PM PRINTED CIRCUIT [employer]ARD PANELS TRIMMER Impressions 10/02/2024 8:50 PM PRINTED CIRCUIT BOARD PANELS TRIMMER 1. Normal examination abdomen pelvis. No hernia. Narrative 10/02/2024 8:50 PM PRINTED CIRCUIT BOARD PANELS TRIMMER For Patients: As a result of the Cures Act, medical imaging exams and procedure reports are released immediately into your electronic medical record. You may view this report before your referring provider. If you have questions, please contact your health care provider. EXAM: CT ABDOMEN PELVIS W LOCATION: [facility] [place] DATE: 10/02/2024 INDICATION: left inguinal pain, concern for hernia COMPARISON: None. TECHNIQUE: CT scan of the abdomen and pelvis was performed following injection of IV contrast. Multiplanar reformats were obtained. Dose reduction techniques were used. CONTRAST: IOPAMIDOL 300 MG/ML IV 100 ML BOTTLE: 100mL FINDINGS: LOWER CHEST: Normal. HEPATOBILIARY: Normal. PANCREAS: Normal. SPLEEN: Normal. ADRENAL GLANDS: Normal. KIDNEYS/BLADDER: Normal. No stones seen. No BOWEL: Normal. LYMPH NODES: Normal. VASCULATURE: Normal. PELVIC ORGANS: Normal. MUSCULOSKELETAL: Normal. No hernia. Procedure Note Gordo Encarnacion MD - 10/02/2024 For Patients: As a result of the Cures Act, medical imagingexams and procedure reports are released immediately into your electronicmedical record. You may view this report before your referring provider.If you have questions, please contact your health care provider. EXAM: CT ABDOMEN PELVIS W LOCATION: [facility] [place] DATE: 10/02/2024 INDICATION: left inguinal pain, concern for hernia COMPARISON: None. TECHNIQUE: CT scan of the abdomen and pelvis was performed followinginjection of IV contrast. Multiplanar reformats were obtained. Dosereduction techniques were used. CONTRAST: IOPAMIDOL 300 MG/ML IV 100 ML BOTTLE: 100mL FINDINGS: LOWER CHEST: Normal. HEPATOBILIARY: Normal. PANCREAS: Normal. SPLEEN: Normal. ADRENAL GLANDS: Normal. KIDNEYS/BLADDER: Normal. No stones seen. No BOWEL: Normal. LYMPH NODES: Normal. VASCULATURE: Normal. PELVIC ORGANS: Normal. MUSCULOSKELETAL: Normal. No hernia. IMPRESSION: 1. Normal examination abdomen pelvis. No hernia. us Tiki Jacobsen PA-C CT Final Result * US SCROTUM W DUPLEX (10/02/2024 8:35 PM PRINTED CIRCUIT BOARD PANELS TRIMMER) Anatomical Region Laterality Modality SCROTUM, TESTES Ultrasound 10/02/2024 8:35 PM PRINTED CIRCUIT [employer]ARD PANELS TRIMMER Impressions 10/02/2024 8:36 PM PRINTED CIRCUIT [employer]ARD PANELS TRIMMER Normal ultrasound of the scrotum. Narrative 10/02/2024 8:36 PM PRINTED CIRCUIT BOARD PANELS TRIMMER For Patients: As a result of the Cures Act, medical imaging exams and procedure reports are released immediately into your electronic medical record. You may view this report before your referring provider. If you have questions, please contact your health care provider. EXAM: US SCROTUM W DUPLEX LOCATION: [facility] [place] DATE: 10/02/2024 INDICATION: Pain/Swelling COMPARISON: None. TECHNIQUE: Ultrasound of scrotum with color flow and spectral Doppler with waveform analysis performed. FINDINGS: RIGHT: Right testicle measures 3.3 x 2.8 x 2.1 cm. Normal testicle with no masses. Normal arterial duplex and normal color flow. Normal epididymis. No hydrocele. No varicocele. LEFT: Left testicle measures 3.4 x 2.9 x 2.4 cm. Normal testicle with no masses. Normal arterial duplex and normal color flow. Normal epididymis. No hydrocele. No varicocele. Procedure Note Jerry Carter MD - 10/02/2024 For Patients: As a result of the Cures Act, medical imagingexams and procedure reports are released immediately into your electronicmedical record. You may view this report before your referring provider.If you have questions, please contact your health care provider. EXAM: US SCROTUM W DUPLEX LOCATION: [facility] [place] DATE: 10/02/2024 INDICATION: Pain/Swelling COMPARISON: None. TECHNIQUE: Ultrasound of scrotum with color flow and spectral Doppler withwaveform analysis performed. FINDINGS: RIGHT: Right testicle measures 3.3 x 2.8 x 2.1 cm. Normal testicle with nomasses. Normal arterial duplex and normal color flow. Normal epididymis.No hydrocele. No varicocele. LEFT: Left testicle measures 3.4 x 2.9 x 2.4 cm. Normal testicle with nomasses. Normal arterial duplex and normal color flow. Normal epididymis.No hydrocele. No varicocele. IMPRESSION: Normal ultrasound of the scrotum. us Tiki Jacobsen PA-C US Final Result * UA W/ SEDIMENT EXAM REFLEXED PER CRITERIA (10/02/2024 8:35 PM PRINTED CIRCUIT BOARD PANELS TRIMMER) COLOR Yellow Yellow Color 10/02/2024 8:37 PM [facility] CLARITY Clear Clear Clarity 10/02/2024 8:37 PM [facility] SPECIFIC GRAVITY,URINE 1.020 1.010, 1.015, 1.020, 1.025 10/02/2024 8:37 PM [facility] PH,URINE 7.0 6.0, 7.0, 8.0, 5.5, 6.5, 7.5, 8.5 10/02/2024 8:37 PM [facility] UROBILINOGEN,Q UALITATIVE Normal Normal EU/dl 10/02/2024 8:37 PM [facility] PROTEIN, URINE Negative Negative mg/dL 10/02/2024 8:37 PM [facility] GLUCOSE, URINE Negative Negative mg/dL 10/02/2024 8:37 PM [facility] KETONES,URINE Negative Negative mg/dL 10/02/2024 8:37 PM [facility] BILIRUBIN,URIN E Negative Negative 10/02/2024 8:37 PM [facility] OCCULT BLOOD,URINE Negative Negative 10/02/2024 8:37 PM [facility] NITRITE Negative Negative 10/02/2024 8:37 PM [facility] LEUKOCYTE ESTERASE Negative Negative 10/02/2024 8:37 PM PRINTED [employer] PANELS TRIMMER [facility] Urine URINE SPECIMEN / Unknown Non-Blood / Unknown 10/02/2024 8:35 PM PRINTED [employer]ARD PANELS TRIMMER 10/02/2024 8:35 PM PRINTED [employer]ARD PANELS TRIMMER us Tiki Jacobsen PA-C URINE Final Result [facility] [address] [place] [address] * (ABNORMAL) CBC WITH AUTO DIFFERENTIAL (10/02/2024 7:48 PM PRINTED CIRCUIT BOARD PANELS TRIMMER) WHITE BLOOD COUNT 7.3 4.6 - 10.2 thou/cu mm 10/02/2024 7:51 PM PRINTED [employer] PANELS TRIMMER [facility] RED BLOOD COUNT 4.79 4.04 - 6.13 mil/cu mm 10/02/2024 7:51 PM [employer]ELS TRIMMER [facility] HEMOGLOBIN 15.5 12.2 - 18.1 g/dL 10/02/2024 7:51 PM [employer] PANELS TRIMMER [facility] HEMATOCRIT 45.2 37.7 - 53.7 % 10/02/2024 7:51 PM [employer] PANELS TRIMMER [facility] MCV 94 80 - 97 fL 10/02/2024 7:51 PM [employer]ED [employer]ELS TRIMMER [facility] MCH 32.4(H) 27.0 - 31.2 pg 10/02/2024 7:51 PM [employer] PANELS TRIMMER [facility] MCHC 34.3 31.8 - 35.4 g/dL 10/02/2024 7:51 PM [employer] PANELS TRIMMER [facility] RDW 14.2 11.6 - 14.8 % 10/02/2024 7:51 PM PRINTED [employer] PANELS TRIMMER [facility] PLATELET COUNT 254 142 - 424 thou/cu mm 10/02/2024 7:51 PM [employer] PANELS TRIMMER [facility] MPV 7.4 6.5 - 11.0 fL 10/02/2024 7:51 PM [employer] PANELS TRIMMER [facility] % NEUT 65.9 37.0 - 80.0 % 10/02/2024 7:51 PM PR[employer]ED [employer] PANELS TRIMMER [facility] % LYMPH 26.3 10.0 - 50.0 % 10/02/2024 7:51 PM [facility] % MONO 6.6 <=12.0 % 10/02/2024 7:51 PM [employer] PANELS TRIMMER [facility] % EOS 0.7 <=7.0 % 10/02/2024 7:51 PM [facility] % BASO 0.5 <=2.5 % 10/02/2024 7:51 PM [facility] ABSOLUTE NEUTROPHILS 4.8 2.0 - 6.9 thou/cu mm 10/02/2024 7:51 PM [facility] ABSOLUTE LYMPHOCYTES 1.9 0.6 - 3.4 thou/cu mm 10/02/2024 7:51 PM [facility] ABSOLUTE MONOCYTES 0.5 <=0.9 thou/cu mm 10/02/2024 7:51 PM [facility] ABSOLUTE EOSINOPHILS 0.1 <=0.7 thou/cu mm 10/02/2024 7:51 PM [facility] ABSOLUTE BASOPHILS 0.0 <=0.3 thou/cu mm 10/02/2024 7:51 PM [facility] Blood BLOOD SPECIMEN / Unknown Non-Lab Venipuncture / Unknown 10/02/2024 7:48 PM PRINTED CIRCUIT [employer]ARD PANELS TRIMMER 10/02/2024 7:48 PM PRINTED [employer] PANELS TRIMMER Tiki Jacobsen PA-C HEMATOLOGY Final Result [facility] [address] [place] [address] * (ABNORMAL) BASIC METABOLIC PANEL (10/02/2024 7:48 PM PRINTED CIRCUIT BOARD PANELS TRIMMER) SODIUM 137 137 - 145 mmol/L 10/02/2024 8:06 PM [facility] POTASSIUM 4.0 3.5 - 5.1 mmol/L 10/02/2024 8:06 PM [facility] CHLORIDE 104 98 - 107 mmol/L 10/02/2024 8:06 PM [facility] CO2,TOTAL 26 22 - 30 mmol/L 10/02/2024 8:06 PM [facility] ANION GAP 7(L) 8 - 12 10/02/2024 8:06 PM [facility] GLUCOSE,RANDOM 95 74 - 106 mg/dL 10/02/2024 8:06 PM PRINTED [employer] PANELS TRIMMER [facility] CALCIUM 9.8 8.4 - 10.2 mg/dL 10/02/2024 8:06 PM [employer]INTED [employer] PANELS TRIMMER [facility] BUN 23(H) 9 - 20 mg/dL 10/02/2024 8:06 PM [facility] CREATININE 0.91 0.66 - 1.25 mg/dL 10/02/2024 8:06 PM PR[employer] PANELS TRIMMER [facility] BUN/CREAT RATIO 25(H) 10 - 20 8:06 PM [employer] PANELS TRIMMER [facility] eGFR >90 >90 mL/min/1.7 3m2 10/02/2024 8:06 PM [facility] Comment:As of 2021, eG FR is calculated by the CKD-EPI creatinine equation without race adjustment. eGFR can be influenced by muscle mass, exercise, and diet. The reported eGFR is an estimation only and is only applicable if the renal function is stable. Blood BLOOD SPECIMEN / Unknown Non-Lab Venipuncture / Unknown 10/02/2024 7:48 PM PRINTED [employer]ARD PANELS TRIMMER 10/02/2024 7:48 PM PRINTED [employer]ARD PANELS TRIMMER Tiki Jacobsen PA-C CHEMISTRY Final Result [facility] [address] [place] [address] from Last 3 Months Insurance [facility] Member Subscriber Plan / Payer (Ef fective 2024-Present) Name:Hua Escobedo Relation to Subscriber:Employee Name:[employer] Date of :1998 (Home) Address: [place] [address] Payer ID:Not on file Group ID:Not on file Type:Not on file Address: [address] [facility] [place] [id number] Care Teams Contact Center Rep Relationship Specialty Start Date End Date Pcp, No . PCP - General 09/14/16
--- OUTSIDE RECORDS SUMMARY | 2025-01-01 17:18 | XMS_ITS | Clinical Summary ---
Author Organization [facility] Address [address] [place] [address]. [place] [address] Care Team Providers Care Automotive Technician Instructor Name Role Phone No Ref-Primary, Physician Primary Care Provider Allergies Active Allergy Reactions Criticality Noted Date Comments Amoxicillin Rash Low 06/14/2022 Medications ibuprofen (ADVIL/MOTRIN) 600 MG tabletIndicatio ns:TMJ (temporomandibu lar joint disorder) Take 1 tablet (600 mg) by mouth every 6 hours as needed for moderate pain (4-6) 28 tablet 06/15/2022 Active acetaminophen (TYLENOL) 500 MG tabletIndicatio ns:TMJ (temporomandibu lar joint disorder) Take 1-2 tablets (500-1,000 mg) by mouth every 6 hours as needed for mild pain 28 tablet 06/15/2022 Active Social History Tobacco Use Types Packs/Day Years Used Date Smoking Tobacco: Never Smokeless Tobacco: Never Tobacco Cessation:Counseling Given: Not Answered Alcohol Use Standard Drinks/Week Comments Never 0 (1 standard drink = 0.6 oz pur e alcohol) Adolescent Education Answer Date Record ed Getting School Help Needed Not on file 05/16 Sex and Gender Information Value Date Recorded Sex Assigned at Not on file Legal Sex Male 4:24 AM HAND COPER Gender Identity Not on file Sexual Orientation Not on file Last Filed Vital Signs Vital Sign Reading Time Taken Comments Blood Pressure 148/85 03/18/2024 3:13 PM CDT Pulse 100 03/18/2024 3:13 PM CDT Temperature 36.9 C (98.4 F) 03/18/2024 3:13 PM CDT Respiratory Rate 17 03/18/2024 3:13 PM CDT Oxygen Saturation 100% 03/18/2024 3:13 PM CDT Inhaled Oxygen Concentration - - Weight 76 kg (167 lb 8.8 oz) 03/18/2024 3:13 PM CDT Height 188 cm (6' 2) 03/18/2024 3:13 PM CDT Body Mass Index 21.51 03/18/2024 3:13 PM CDT Plan of Treatment Health Maintenance Due Date Last Done Comments ADVANCE CARE PLANNING 2002 ANNUAL REVIEW OF HM ORDERS 2002 YEARLY PREVENTIVE VISIT 2005 HIV SCREENING 2017 HPV VACCINE (1 - Male 3-dose series) 2017 MENINGITIS B VACCINE (1 of 2 - Standard) 2018 HEPATITIS C SCREENING 02/21/2020 DTAP/TDAP/TD VACCINE (7 - Td or Tdap) 03/19/2024 03/19/2014, 10/29/2007, 08/19/2003, Additional history exists COVID-19 VACCINE (1 - season) 2024 PHQ-2 (once per calendar year) 2024 INFLUENZA VACCINE (Season Ended) 2025 06/06/2016, 08/13/2012, 07/16/2003 ZOSTER VACCINE (1 of 2) 02/21/2052 HEPATITIS B VACCINE Completed 01/29/2003, 2002, 2002 PNEUMOCOCCAL VACCINE: PEDIATRICS (0 to 5 YEARS) AND AT-RISK PATIENTS (6 to 49 YEARS) Aged Out 07/16/2003, 2002, 2002, Additional history exists No longer eligible based on patient's age to complete this topic MENINGITIS VACCINE Aged Out 03/19/2014 No longer eligible based on patient's age to complete this topic Insurance [employer] Care Teams Automotive Technician Instructor Relationship Specialty Start Date End Date No Ref-Primary, Physician PCP - General 06/15/22
--- OUTSIDE RECORDS SUMMARY | 2025-01-01 17:18 | XMS_ITS | Clinical Summary ---
[facility] Address [address] [address] Care Team Providers Care Program Director/Music Director Name Role Phone Unavailable Primary Care Provider Unavailabl e Source Comments You are receiving this document as you are listed as the primary care provider,follow-up provider, or the patient has been referred to you for consultation.This is in compliance with the Medicare and[facility] EHR Incentive Program,which states Providers who transition their patient to another setting of careor provider of care or refers their patient to another provider of care shouldprovide summary care record for each transition of care or referral. [email or web address] Allergies Active Allergy Reactions Criticality Noted Date Comments Amoxicillin Rash 07/03/2022 Medications ibuprofen (AKA ADVIL) 100 MG/5ML suspension Take by mouth. LW Addl Instr:Take with food. 04/18/2008 Active unknown medication Indications : PN: 04/25/2008 Active Meloxicam (MOBIC) 15 MG tablet Take 1 Tablet (15 mg) by mouth daily. 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 Temperature 35.9 C (96.7 F) 08/24/2022 4:09 PM 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 Respiratory Rate 20 07/03/2022 2:58 PM 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 Oxygen Saturation 100% 07/03/2022 2:58 PM 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 Inhaled Oxygen Concentration - - Weight 69.4 kg (153 lb) 08/24/2022 4:09 PM 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 Height 188 cm (6' 2) 08/24/2022 4:09 PM 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 Body Mass Index 19.64 08/24/2022 4:09 PM 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 Plan of Treatment Health Maintenance Due Date Last Done Comments Hep C Screening (Preventive Services) 2002 MenB Immunization Discussion 2002 HepA Vaccine (2 of 2 - 2-dose series) 09/19/2014 03/19/2014 HPV Vaccine (1 - Male 3-dose series) 2017 HIV Screening (Preventive Services) 2018 Adult Preventive Visit 02/21/2020 HepB Vaccine (1) 2021 DTaP/Tdap/Td Vaccine (7 - Tdap) 03/19/2024 03/19/2014, 10/29/2007, 08/19/2003, Additional history exists COVID-19 Vaccine (1 - season) 2024 Influenza Vaccine (Season Ended) 2025 06/06/2016, 08/13/2012, 07/16/2003 Zoster/Shingles Vaccine (1 of 2) 02/21/2052 Pneumococcal Vaccine Aged Out 07/16/2003, 2002, 2002, Additional history exists No longer eligible based on patient's age to complete this topic Hib Vaccine Completed 08/19/2003, 06/30, 2002 IPV (Polio) Vaccine Completed 10/29/2007, 01/29/2003, 2002, Additional history exists MCV4 Vaccine Aged Out 03/19/2014 No longer eligi ble based on patient's age to complete this topic Insurance BCBS OUT OF STATE [place] [id number] [facility] OUT OF STATE [facility]
[2025-01-01 17:20] VITALS: BP 124/86; PULSE 105; RESP 16; TEMP 36.8; O2SAT 96; BMI 19.9
--- NOTE | 2025-01-01 17:52 | ED.GENADULT ---
[facility] - General Adult General Date Seen: 01/01/25 Chief complaint: Post Op Complication Stated complaint: surgery wound bleeding Time Seen by Provider: 01/01/25 17:18 Source: patient Mode of arrival: ambulatory Limitations: no limitations History of Present Illness HPI narrative: Patient is a 24-year-old male presenting for concern of a postop issue. On 12/17/2023 he had surgery for testicular torsion at [facility]. Today he noticed a little bit of bloody drainage coming from it. The drainage has slowed down. He does have pain throughout the scrotum this pain has been consistent since his surgery. Has not noticed any fevers or chills. Has not noticed any purulent discharge. States he was concerned due to the bleeding. He called the triage line was told to come to the emergency department for evaluation. No other complaints noted at this time. Pain is is worse with movement same as that has been since the surgery improves at rest. Currently states he is pain-free. Related Data Home Medications ?Medication ?Instructions ?Recorded ?Confirmed No Known Home Medications 01/01/25 01/01/25 Allergies Allergy/AdvReac Type Severity Reaction Status Date / Time amoxicillin Allergy Unknown Hives Verified 08/05/22 17:03 Review of Systems Narrative: Pertinent systems reviewed and were negative unless stated in HPI PFSH [facility] Medical History No significant past medical history Surgical History No significant past surgical history Social History Smoking Status: Never smoker Do you use any of these nicotine containing products: None Second hand tobacco smoke exposure: No How often do you have a drink containing alcohol: never How often do you have six or more drinks on one occasion: Never AUDIT-C Alcohol total score: 0 Non-prescribed substance use: marijuana (any form) service: No Exam Narrative: Exam Narrative: Const: Well-nourished, Well-developed, in mild distress Eyes: PERRL, no conjunctival injection, and symmetrical lids HENT: Atraumatic external nose and ears. Moist mucous membranes. : Tender scrotum palpation, well-healing surgical site, no signs of erythema or cellulitis MSK:Extremities w/o deformity, Normal Active ROM Skin: Warm, Dry. No rashes or lesions. Neuro: Normal Muscle tone, No focal neurological deficits. Psych: Awake, Alert, & Oriented x3. Appropriate mood and affect. Const: Vital Signs, click to edit/add: Vital Signs - 24 hr 01/01/25 17:20 Temperature 98.3 F Pulse Rate [Pulse Oximeter] 105 H Respiratory Rate 16 Blood Pressure [Ri ght Upper Arm] 124/86 Pulse Oximetry 96 Oxygen Delivery Me thod Room Air Course Vital Signs Vital signs: Initial Vital Signs Temperature 98.3 F 01/01/25 17:20 Temperature Source Temporal Artery Scan 01/01/25 17:20 Pulse Rate 105 H 01/01/25 17:20 Respiratory Rate 16 01/01/25 17:20 Blood Pressure 124/86 01/01/25 17:20 Blood Pressure Mean 98 01/01/25 17:20 Blood Pressure Position Sitting 01/01/25 17:20 Pulse Oximetry 96 01/01/25 17:20 Oxygen Delivery Method Room Air 01/01/25 17:20 Vital Signs Temperature 98.3 F 01/01/25 17:20 Pulse Rate 105 H 01/01/25 17:20 Respiratory Rate 16 01/01/25 17:20 Blood Pressure 124/86 01/01/25 17:20 Pulse Oximetry 96 01/01/25 17:20 Oxygen Delivery Method Room Air 01/01/25 17:20 Temperature 98.3 F 01/01/25 17:20 Pulse Rate 105 H 01/01/25 17:20 Respiratory Rate 16 01/01/25 17:20 Blood Pressure 124/86 01/01/25 17:20 Pulse Oximetry 96 01/01/25 17:20 Oxygen Delivery Method Room Air 01/01/25 17:20 Medical Decision Making MDM Narrative Medical decision making narrative: Patient is a 24-year-old male presenting to the emergency department for concerns of a postop wound infection. Surgery was done little over 2 weeks ago on 12/16/2024. I do not see any. I discharged at this time. Did have a small amount of blood on a piece of gauze he had on the area to protect his underwear. Is not having any systemic issues. Pain is not any worse than it was since the surgery. I see no signs of infection at this time. Bleeding seems to have stopped. I believe he is safe for discharge. I do not believe imaging is necessary Discharge Plan Discharge Clinical Impression: Post-op bleeding Qualifiers: Surgical complication system/body Area: skin Procedure type: non-dermatologic Qualified Code(s): L76.22 - Postprocedural hemorrhage of skin and subcutaneous tissue following other procedure Patient Disposition: Home, Self-Care Condition: Stable Additional Instructions: I recommend calling your surgeon in the morning if the bleeding continues. Return to this emergency department or the hospital where the procedure was done for new or worsening symptoms including but not limited to fevers, worsening pain, purulent discharge. Prescriptions: No Action No Known Home Medications Follow Up/Referrals: Provider,Not a Local [Primary Care Provider, Family Practice] Stand Alone Forms: [employer] Info Instructions
== END 2025-01-01 18:17 | disposition home or self-care (01) ==
LOC: ED 18:15
PROVIDERS: Emergency Provider Student in an Organized Health Care Education/Training Program
DX: L76.82 Other postprocedural complications of skin and subcutaneous tissue (principal)
CPT/HCPCS: 99282; 99283